=== PATIENT | female | born 1980 | race Caucasian/White ===

== ENCOUNTER 2017-09-25 21:37 | Emergency (ER) | payer MEDICAID, OTHER, SELFPAY ==
[2017-09-22 20:15] VITALS: TEMP 36.7
[2017-09-25 21:43] VITALS: BP 139/85; PULSE 105; RESP 14; TEMP 36.3; O2SAT 100; BMI 18.3
== END 2017-09-25 23:52 | disposition left against medical advice (07) ==
LOC: ED 21:42
DX: Z51.89 Encounter for other specified aftercare (principal)
CPT/HCPCS: 99281; 99282

== ENCOUNTER 2020-02-09 20:53 | Outpatient (CLI) | payer OTHER, MEDICAID, SELFPAY ==
[2020-02-09 21:18] LABS: Bilirubin Urine UA NEGATIVE (NEGATIVE); Glucose Urine UA NEGATIVE (Negative); Ketones Urine UA NEGATIVE (NEGATIVE); Leukocyte Esterase Urine UA 2+ (NEGATIVE); Nitrite Urine UA NEGATIVE (Negative); Occult Blood Urine UA 3+ (Negative); Protein Urine UA 1+ (Negative); Urobilinogen Urine UA 0.2 E.U./dL (0.2)
[2020-02-09 21:19] LABS: Appearance Urine UA Slightly Cloudy; Color Urine UA Dark Yellow
[2020-02-09 21:23] LABS: UR Morphine/Opiate cutoff 300 Negative (Negative); Ur Creatinine Normal (Normal); Ur Specific Gravity Normal (Normal); Urine Amphetamines Negative (Negative); Urine Barbiturates Negative (Negative); Urine Benzodiazepines Negative (Negative); Urine Cocaine Negative (Negative); Urine MDMA Negative (Negative); Urine Methadone Positive (Negative); Urine Methamphetamines Negative (Negative); Urine Oxycodone Negative (Negative); Urine Phencyclidine Negative (Negative); Urine Tetrahydrocannabinol Negative (Negative); Urine Tricyclic Antidepressant Negative (Negative); Urine pH Normal (Normal)
[2020-02-09 21:25] LABS: RBC Urine 30-100/HPF (0-5/HPF); WBC Urine 10-30/HPF (0-5/HPF)
[2020-02-09 21:26] LABS: Bacteria Urine Moderate (10-30)
[2020-02-09 21:27] LABS: Culture Indicated Urine Cult Not Indicated; Squamous Epithelial Cell Urine 5-10 /HPF (0-5/HPF)
--- NOTE | 2020-02-10 12:01 | P.TNLD_ITS ---
Visit Information Visit Information Date of evaluation: 02/09/20 On-call OB Provider: Caitlyn Caballero Reason for Evaluation: Yes rule out labor PFSH Social History Smoking Status: Current every day smoker Objective Labs Labs: Laboratory Results - last 24 hr 02/09/20 02/09/20 21:10 21:10 Urine Color Dark yellow Urine Appearance Slightly cloudy Urine pH 8.0 Ur Specific [place] 1.020 Urine Protein 1+ H Urine Glucose (UA) Negative Urine Ketones Negative Urine Occult Blood 3+ H Urine Nitrate Negative Urine Bilirubin Negative Urine Urobilinogen 0.2 Ur Leukocyte Esterase 2+ H Urine RBC 30-100/hpf H Urine WBC 10-30/hpf H Ur Squamous Epith Cells 5-10 /hpf H Urine Bacteria Moderate (10-30) H Ur Culture Indicated? Cult not indicated U Opiates 300ng/mL cut Negative Ur Oxycodone Screen Negative Urine Methadone Screen Positive H Ur Barbiturates Screen Negative U Tricyclic Antidepress Negative Ur Phencyclidine Scrn Negative Ur Amphetamines Screen Negative U Methamphetamines Scrn Negative Ur MDMA Scrn (Ecstasy) Negative U Benzodiazepines Scrn Negative Urine Cocaine Screen Negative U Marijuana (THC) Screen Negative Evaluation Evaluation Baseline heart rate: 130 Variability: Moderate (11-25) monitor accelerations: Present monitor decelerations: Variable Contraction Frequency (minutes): 4 Uterine Contraction Intensity: Mild Category of Tracing: Reactive Cervical effacement (%): 90 station: -2 Laboratory results: Laboratory Tests 02/09/20 02/09/20 21:10 21:10 Urine Color Dark yellow Urine Appearance Slightly cloudy Urine pH 8.0 Ur Specific [place] 1.020 Urine Protein 1+ H Urine Glucose (UA) Negative Urine Ketones Negative Urine Occult Blood 3+ H Urine Nitrate Negative Urine Bilirubin Negative Urine Urobilinogen 0.2 Ur Leukocyte Esterase 2+ H Urine RBC 30-100/hpf H Urine WBC 10-30/hpf H Ur Squamous Epith Cells 5-10 /hpf H Urine Bacteria Moderate (10-30) H Ur Culture Indicated? Cult not indicated U Opiates 300ng/mL cut Negative Ur Oxycodone Screen Negative Urine Methadone Screen Positive H Ur Barbiturates Screen Negative U Tricyclic Antidepress Negative Ur Phencyclidine Scrn Negative Ur Amphetamines Screen Negative U Methamphetamines Scrn Negative Ur MDMA Scrn (Ecstasy) Negative U Benzodiazepines Scrn Negative Urine Cocaine Screen Negative U Marijuana (THC) Screen Negative Diagnosis, Plan/Disposition Plan/Disposition Plan: Assessment: 39-year-old 2 para 1 at 37-,2/7 weeks gestation in early labor On 90 mg of methadone Plan: Patient initially had a ride to [facility]. On [facility], patient reported that she had a small amount of vaginal bleeding, which was also noted on Labor and delivery as bloody show, and they called an ambulance. We intercepted the seasonal delivery driver and explained that we cannot take care of this baby here and that the patient would need to go to either [facility] or [facility] Disposition: other (By private bulk tank driver to [facility])
== END 2020-02-09 21:35 | disposition home or self-care (01) ==
LOC: OB 02-12 15:02
PROVIDERS: Referring Provider Obstetrics & Gynecology; Visit Provider Obstetrics & Gynecology
DX: O99.323 Drug use complicating pregnancy, third trimester (principal); Z3A.37 37 weeks gestation of pregnancy; F11.90 Opioid use, unspecified, uncomplicated; O99.333 Smoking (tobacco) complicating pregnancy, third trimester; F17.210 Nicotine dependence, cigarettes, uncomplicated
CPT/HCPCS: 59025; 80305; 81001; G0378; G0379

== ENCOUNTER 2023-06-05 16:34 | Emergency (ER) | payer OTHER, MEDICAID, SELFPAY ==
[2023-06-05 16:45] VITALS: BP 119/67; PULSE 102; RESP 18; TEMP 36.7; O2SAT 99; BMI 19.0
--- NOTE | 2023-06-05 18:18 | ED.DENTAL ---
HPI - Dental/Oral <Elana Del Rosario PA-C - Last Filed: 06/05/23 19:05> General Chief complaint: Dental/Oral Stated complaint: abcess in back tooth infected Time Seen by Provider: 06/05/23 16:59 Source: patient Mode of arrival: Ambulatory History of Present Illness HPI Narrative: 42-year-old female here in the ED for a possible dental infection. The right side of her lower mouth and right jaw have been painful for the last 3 days and she has had increasing swelling of the right jaw. No fevers or chills. She denies a history of dental infections. She does have a dentist that she can follow up with. She denies any neck pain. She is still able to open her mouth and eat but now able to open it as wide as usual. No history of dental infections that required IV antibiotics. Related Data Home Medications Medication Instructions Recorded Confirmed ondansetron 4 mg disintegrating 4 mg sublingual Q6HP PRN Nausea 09/22/17 09/22/17 tablet (Zofran ODT) Previous Rx's Medication Instructions Recorded multivitamin (Multiple Vitamins 1 tab PO QDAY #90 tabs 04/04/17 tablet) amoxicillin 875 mg-potassium 1 tab PO BID 10 days #20 tabs 06/05/23 clavulanate 125 mg tablet tramadol 50 mg tablet 50 mg PO BID PRN pain #10 tabs 06/05/23 Allergies Allergy/AdvReac Type Severity Reaction Status Date / Time No Known Drug Allergies Allergy Verified 06/05/23 16:45 Review of Systems <CARLOS Worley Last Filed: 06/05/23 19:05> Review of Systems ROS Unobtainable: All systems reviewed & are unremarkable except as noted in HPI and below Patient History <Elana Del Rosario PA-C - Last Filed: 06/05/23 19:05> Social History Smoking Status: Current every day smoker Smoking Status: Current every day smoker alcohol intake frequency: a few times a week Substance Use Type: does not use Exam <CARLOS Worley Last Filed: 06/05/23 19:05> Narrative Exam Narrative: GENERAL: [42] year old patient appears stated age. Well-developed patient, in no acute distress, sleeping in exam room HEAD: Atraumatic. Normocephalic. EYES: Pupils equal round and reactive. Extraocular motions intact. No scleral icterus. No injection or drainage. ENT: Nose without bleeding, purulent drainage. Throat without erythema, tonsillar hypertrophy or exudate. Airway patent. Right lower molar with significant dental caries and degradation with surrounding inflammation of the gums. right jaw swelling present. No trismus, no drooling. No sublingual tenderness or submental tenderness. NECK: Trachea midline. Non tender, full range of motion CV: Slightly tachycardic but otherwise normal rhythm and no murmurs RESPIRATORY: Respiratory rate and effort normal EXTREMITIES: No edema or joint tenderness. BACK: Nontender without deformity or crepitance. No flank tenderness. NEURO: AOx3. SKIN: No rash or erythema of visible areas, no facial cellulitis or redness/warmth of the neck Initial Vital Signs Initial Vital Signs: Vital Signs Temperature 98.0 F 06/05/23 16:45 Pulse Rate 102 H 06/05/23 16:45 Respiratory Rate 18 06/05/23 16:45 Blood Pressure 119/67 06/05/23 16:45 Pulse Oximetry 99 06/05/23 16:45 Oxygen Delivery Method Room Air 06/05/23 16:45 <Savanah Fuentes DO - Last Filed: 06/05/23 23:27> Initial Vital Signs Initial Vital Signs: Vital Signs Temperature 98.0 F 06/05/23 16:45 Pulse Rate 102 H 06/05/23 16:45 Respiratory Rate 18 06/05/23 16:45 Blood Pressure 119/67 06/05/23 16:45 Pulse Oximetry 99 06/05/23 16:45 Oxygen Delivery Method Room Air 06/05/23 16:45 Course <Elana Del Rosario PA-C - Last Filed: 06/05/23 19:05> Orders Ordered: Discontinued Medications Amoxicillin/Clavulanate Potassium (Amoxicillin/Clav 875/125 Mg) 1 tab PO NOW ONE Stop: 06/05/23 18:22 Last Admin: 06/05/23 18:27 Dose: 1 tab Documented By: JOSH Ketorolac Tromethamine (Ketorolac 30 Mg/Ml Vial) 30 mg IM NOW ONE Stop: 06/05/23 18:22 Last Admin: 06/05/23 18:27 Dose: 30 mg Documented By: JOSH Vital Signs Vital signs: Vital Signs - 8 hr 06/05/23 16:45 06/05/23 18:19 06/05/23 18:20 Temperature 98.0 F 97.8 F Pulse Rate 102 H 107 H Respiratory Rate 18 16 Blood Pressure 119/67 121/67 Pulse Oximetry 99 98 Oxygen Delivery Method Room Air Room Air <Savanah Fuentes DO - Last Filed: 06/05/23 23:27> Orders Ordered: Discontinued Medications Amoxicillin/Clavulanate Potassium (Amoxicillin/Clav 875/125 Mg) 1 tab PO NOW ONE Stop: 06/05/23 18:22 Last Admin: 06/05/23 18:27 Dose: 1 tab Documented By: JOSH Ketorolac Tromethamine (Ketorolac 30 Mg/Ml Vial) 30 mg IM NOW ONE Stop: 06/05/23 18:22 Last Admin: 06/05/23 18:27 Dose: 30 mg Documented By: JOSH Vital Signs Vital signs: Vital Signs - 8 hr 06/05/23 16:45 06/05/23 18:19 06/05/23 18:20 Temperature 98.0 F 97.8 F Pulse Rate 102 H 107 H Respiratory Rate 18 16 Blood Pressure 119/67 121/67 Pulse Oximetry 99 98 Oxygen Delivery Method Room Air Room Air MDM - Dental/Oral <Elana Del Rosario PA-C - Last Filed: 06/05/23 19:05> MDM Narrative Medical decision making narrative: Patient is slightly tachycardic but otherwise no concerning signs for sepsis. No fevers. She has in no distress. Airway patent and she has no signs or symptoms consistent with Andrea's angina or other deep space infections. Nontoxic in appearance. She does have significant swelling of the right side of her jaw but there is no overlying cellulitis. Patient given Toradol 30 mg and ED and 1 dose of Augmentin and she will continue oral Augmentin at home. We discussed strict ER precautions should she have any worsening signs or symptoms and patient will follow up with her dentist this week. Multiple etiologies for patient's symptoms considered including, but not limited to: Dental infection, abscess, deep space infection, sepsis Consultations: Discussed with Dr. Fuentes who agreed that based on patient's presentation and lack of red flag symptoms she would be fine to receive outpatient oral antibiotics. Patient's symptoms improved over duration of stay with above-stated therapies. Findings and discharge diagnosis discussed with patient/family followed by verbalization of understanding Return precautions discussed with patient/family whom verbalize understanding of diagnosis and plan Discharge Plan Departure Patient Disposition: Home Clinical Impression: Infected dental caries Instructions: Tooth Abscess, DI for Dental Pain Activity Restrictions/Additional Instructions: You have been seen today for a dental infection. You do have significant swelling of the right side of her jaw but no symptoms that are concerning of a deeper infection and no indication for further blood tests or imaging at this time. You were given 1 dose of antibiotics as well as pain medication in the ER. 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 Please follow up with your dentist as soon as possible this week. If you develop any worsening signs or symptoms such as high fever, neck pain and difficulty moving your neck, difficulty opening her mouth, difficulty breathing please return to the ER immediately. Prescriptions: New amoxicillin-pot clavulanate 875-125 mg tablet 1 tab PO BID 10 Days Qty: 20 0RF tramadol 50 mg tablet 50 mg PO BID PRN (Reason: pain) Qty: 10 0RF No Action multivitamin [Multiple Vitamins] 1 EACH tablet 1 tab PO QDAY Qty: 90 0RF ondansetron [Zofran ODT] 4 MG tablet,disintegrating 4 mg Sublingual Q6HP PRN (Reason: Nausea) Stand Alone Forms: Patient Portal/API ED Sign-out <Savanah Fuentes, - Last Filed: 06/05/23 23:27> Cosign ED Attending Shu Attestation: I was available for consultation.
[2023-06-05 18:19] VITALS: BP 121/67; PULSE 107; RESP 16; O2SAT 98
[2023-06-05 18:20] VITALS: TEMP 36.6
[2023-06-05] MEDS: KETOROLAC 30 MG/ML VIAL IM (18:27)
[2023-06-05] MEDS: AMOXICILLIN/CLAV 875/125 MG 1 TAB PO (18:27)
== END 2023-06-05 19:12 | disposition home or self-care (01) ==
PROVIDERS: Emergency Provider Physician Assistant
DX: K02.9 Dental caries, unspecified (principal)
CPT/HCPCS: 96372; 99283; J1885